=== PATIENT | female | born 2000 | race Caucasian/White ===

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

== ENCOUNTER 2020-02-11 21:26 | Emergency (ER) | payer BC, SELFPAY ==
--- NOTE | 2020-02-12 07:08 | RAD ---
RIGHT WRIST 3 VIEWS: Date: 02/11/2020 HISTORY: Wrist pain status post trauma. FINDINGS: There are no signs of fracture or dislocation. IMPRESSION: Negative right wrist. POS: [id number]
== END 2020-02-11 23:21 | disposition home or self-care (01) ==
LOC: ERS 21:26
DX: S60.211A Contusion of right wrist, initial encounter (principal); F41.9 Anxiety disorder, unspecified; F32.9 Major depressive disorder, single episode, unspecified; W23.0XXA Caught, crushed, jammed, or pinched between moving objects, initial encounter